=== PATIENT | female | born 1965 | race Caucasian/White ===

== ENCOUNTER 2021-01-06 13:26 | Emergency (ER) | payer BC, MEDICAID ==
[~2021-01-06] VITALS: Ht 170.2 cm; Wt 81.6 kg
[2021-01-06 13:44] VITALS: BP 122/71
--- NOTE | 2021-01-06 14:21 | NUR ---
[facility] AT BEDSIDE FOR XRAY.
[2021-01-06] MEDS ORDERED: KETOROLAC TROMETHAMINE 15 MG/ML VIAL ONE (14:23)
[2021-01-06] MEDS ORDERED: KETOROLAC TROMETHAMINE INJ 30 MG/ML VIAL IM ONE (14:30)
== END 2021-01-06 15:08 | disposition home or self-care (01) ==
LOC: ER 13:26
DX: M17.11 Unilateral primary osteoarthritis, right knee (principal)
CPT/HCPCS: 73564; 96372; 99283; J1885